=== PATIENT | male | born 1960 | race Caucasian/White ===

== ENCOUNTER 2017-11-27 10:43 | Emergency (ER) | payer SELFPAY ==
[~2017-11-27] VITALS: Ht 172.7 cm; Wt 95.7 kg
[~2017-11-27 10:43] MED LIST: LEVOTHYROXINE; LISI10TA PO; PROP20TA7 PO
[2017-11-27 11:49] VITALS: BP_SYST 141
--- NOTE | 2017-11-27 11:49 | NUR ---
Placed in room 2 . Placed on cardiac cath lab manager, blood pressure machine and pulse oximeter. To gown for exam. Side rails up. Report received from Wiley WATERS.
--- NOTE | 2017-11-27 11:50 | NUR ---
Pt presents to ED with dizziness and coughing up blood. VSS. No active bleeding now. Pt is A&O x4.
--- NOTE | 2017-11-27 12:05 | NUR ---
TRACY Leon at bedside examining patient.
[2017-11-27] MEDS ORDERED: MECLIZINE HCL 25 MG TABLET (ANITVERT) PO ONE (12:15)
[2017-11-27] MEDS ORDERED: NACL 0.9% 1,000 ML IV ONE (12:15)
[2017-11-27 12:38] LABS: BASOPHILS # (AUTO) 0.1 K/uL (0.0-0.2); BASOPHILS % (AUTO) 0.7 % (0.0-2.0); EOSINOPHILS # (AUTO) 0.2 K/uL (0.0-0.4); EOSINOPHILS % (AUTO) 2.2 % (0.0-4.0); HEMATOCRIT 46.3 % (36-54); HEMOGLOBIN 15.2 g/dL (14.0-18.0); LYMPHOCYTES # (AUTO) 1.8 K/uL (1.0-5.5); LYMPHOCYTES % (AUTO) 23.8 % (20.5-51.5); MEAN CORPUSCULAR HEMOGLOBIN 29 pg (27-31); MEAN CORPUSCULAR HGB CONC 33 % (32-36); MEAN CORPUSCULAR VOLUME 88 fL (79.0-98.0); MONOCYTES # (AUTO) 0.6 K/uL (0.0-1.0); MONOCYTES % (AUTO) 8.4 % (1.7-9.3); NEUTROPHILS # (AUTO) 4.9 K/uL (1.8-7.7); NEUTROPHILS % (AUTO) 64.9 % (40.0-70.0); PLATELET COUNT (AUTO) 244 K/uL (130-430); RED BLOOD CELL COUNT(AUTO) 5.27 MIL/uL (4.2-6.2); RED CELL DISTRIBUTION WIDTH 12.5 % (9.0-15.0); WHITE BLOOD COUNT (AUTO) 7.6 K/uL (4.8-10.8)
[2017-11-27 12:49] LABS: CREATININE 0.95 mg/dL (0.55-1.30); POTASSIUM 4.1 mmol/L (3.5-5.1)
[2017-11-27 13:02] LABS: ALBUMIN 3.9 g/dL (3.4-4.8); THYROID STIMULATING HORMONE 1.94 uIu/mL (0.36-3.74); TOTAL BILIRUBIN 0.5 mg/dL (0.0-1.0)
[2017-11-27 14:09] LABS: BILIRUBIN,URINE NEGATIVE (NEGATIVE); BLOOD, URINE NEGATIVE (NEGATIVE); CLARITY/URINE CLEAR (CLEAR); COLOR,URINE YELLOW (YELLOW); GLUCOSE,URINE NEGATIVE (NEGATIVE); KETONES,URINE NEGATIVE (NEGATIVE); LEUKOCYTE ESTERASE ,URINE NEGATIVE (NEGATIVE); NITRITE, URINE NEGATIVE (NEGATIVE); PH,URINE 5.5 (5.0-8.0); PROTEIN URINE NEGATIVE (NEGATIVE); UROBILINOGEN,URINE 0.2 (0.2-1.0)
[2017-11-27 14:22] LABS: BARBITURATE, URINE NEGATIVE (NEG <=200); BENZODIAZEPINE, URINE NEGATIVE (NEG <=150); CANNABINOID, URINE NEGATIVE (NEG <=50); COCAINE, URINE NEGATIVE (NEG <=150); METHAMPHETAMINES SCREEN,URINE NEGATIVE (NEG <=500); OPIATE, URINE NEGATIVE (NEG <=100); PHENCYCLIDINE SCREEN,URINE NEGATIVE (NEG <=25); UR TRICYCLIC ANTIDEPRESSANTS NEGATIVE (NEG <=300); URINE AMPHETAMINE NEGATIVE (NEG <=500); URINE METHADONE NEGATIVE (NEG <=200); URINE OXYCODONE SCREEN NEGATIVE (NEG <=100); URINE PROPOXYPHENE SCREEN NEGATIVE (NEG <=300)
--- NOTE | 2017-11-27 14:40 | NUR ---
Dr Fagan at bedside discussing plan to Admit. Advised pt that he needs a scope to find the source of bleeding. Pt is refusing care for now.
[2017-11-27] MEDS ORDERED: PANTOPRAZOLE SODIUM 40 MG/VIAL (PROTONIX) IVP ONE (14:45)
[2017-11-27] MEDS ORDERED: OCTREOTIDE ACETATE 50 MCG/ML AMP IVP ONE (14:45)
[2017-11-27] MEDS ORDERED: IOHEXOL 100 ML IV ONE (14:53)
--- NOTE | 2017-11-27 14:56 | NUR ---
Pt is agreeable with CT scan with contrast. May leave AMA after test.
--- NOTE | 2017-11-27 14:58 | NUR ---
Pt off of unit to radiology for CT scan
--- NOTE | 2017-11-27 15:12 | NUR ---
Pt back from radiology
[2017-11-27 16:19] VITALS: BP_SYST 128
--- NOTE | 2017-11-27 16:24 | NUR ---
Patient does not wish to proceed with medical care recommended by DR GALVEZ. Patient given information related to possible complications, up to and including , which could occur as a result of leaving hospital at this time. Patient verbalizes understanding of risks involved leaving against medical advice. Patient has signed AMA form.
== END 2017-11-27 16:19 | disposition left against medical advice (07) ==
LOC: SED 10:43
DX: R04.2 Hemoptysis (principal); R42 Dizziness and giddiness; I10 Essential (primary) hypertension
CPT/HCPCS: 36415; 71010; 71260; 80053; 80307; 81003; 84443; 85025; 96360; 99285; C9113; J2354; J7030; J8597; Q9967